=== PATIENT | male | born 1955 | race Caucasian/White ===

== ENCOUNTER 2017-06-22 10:22 | Inpatient (IN) | payer OTHER ==
[~2017-06-22] VITALS: Ht 157.5 cm; Wt 83.0 kg
--- NOTE | 2017-06-22 10:44 | ED CARDIAC/CP/PALPITATIONS ---
History of Present Illness General Chief Complaint: Chest Pain Stated Complaint: CP Source: patient, family Exam Limitations: language barrier (SON INTERPRETING) Vital Signs & Intake/Output Vital Signs & Intake/Output Vital Signs Date Time Temp Pulse Resp B/P B/P Pulse O2 O2 Flow FiO2 Mean Ox Delivery Rate 06/22 1152 94 20 125/65 94 Room Air 06/22 1136 123 152/85 06/22 1110 98 Room Air 06/22 1104 98.6 130 18 153/92 06/22 1040 98.6 130 18 153/92 97 Room Air Allergies Coded Allergies: No Known Drug Allergies (UNKNOWN 06/22/17) Triage Nurses Notes Reviewed? yes Onset: Gradual Duration: worse persistent since (THIS AM 7 AM) Timing: no prior history Quality/Severity: moderate Location: central Radiation: no radiation Activities at Onset: none Prior Chest Pain/Card Workup: stress test (3 YEARS AGO- ) Modifying Factors: Improves With: rest. Associated Symptoms: LIGHTHEADED, CP,SOB HPI: Patient is a 62-year-old male presenting to emergency department with chief complaint centralized chest pain, shortness of breath and lightheadedness that began spotting around 7 AM. Patient had a difficult time falling asleep so he took his blood pressure and noticed it was elevated so he called his son who then brought him in for evaluation. Patient also reports intermittent palpitations. No history of irregular heart rate. Chest pain is currently moderate and nonradiating. Denies any nausea or vomiting. No arm pain and jaw pain or neck pain. Denies any back pain. (Nathaly Lopez) Past History Travel History Traveled to [place] past 21 day No Medical History Any Pertinent Medical History? see below for history Surgical History Surgical History: non-contributory Psychosocial History What is your primary language Yi Family History Hx Contributory? No (Nathaly Lopez) Review of Systems Review of Systems Constitutional: Reports: malaise. Comments Review of systems: See HPI, All other systems negative. Constitutional, no chills fever or weight loss HEENT: No visual changes no sore throat no congestion Cardiovascular: No orthopnea or ankle swelling Skin, no jaundice no rashes Respiratory: No cough sputum or hemoptysis GI: No nausea no vomiting : No dysuria No hematuria Muscle skeletal: no back pain, no neck pain, Neurologic: No numbness no confusion NO HEADACHES Psych: No stress anxiety or depression,. Heme/endocrine: No bruising no bleeding no polyuria or polydipsia Immunology: No splenectomy or history of AIDS (Nathaly Lopez) Physical Exam Physical Exam General Appearance: well developed/nourished, no apparent distress, alert, awake , comfortable Cardiovascular: IRREGULAR RATE AND RHYTHM Comments: Well-developed well-nourished person in no acute distress HEENT: Pupils equally round and reactive to light and accommodation. Nose is atraumatic. Neck: Supple, no lymphadenopathy, normal range of motion without pain or tenderness Back: Nontender, no CVA tenderness. Cardiovascular: IRRegular rate and rhythms no murmurs rubs or gallops, normal JVP Respiratory: Chest nontender. No respiratory distress.breath sounds clear to auscultation bilaterally Abdomen: Soft, nontender nondistended, no appreciable organomegaly. Normal bowel sounds. No ascites, no rebound or guarding. Extremity: No edema, no calf tenderness to palpation, normal and equal pulses. Neuro: Alert oriented x3, motor sensory normal, cranial nerves II through XII grossly intact. Skin: No appreciable rash on exposed skin, skin is warm and dry. Psych: Mood and affect is normal, memory and judgment is normal. Core Measures ACS in differential dx? Yes CVA/TIA Diagnosis No Sepsis Present: No Sepsis Focused Exam Completed? No (Nathaly Lopez) Progress Differential Diagnosis: ACS, PE, NEW ON SET RAPID AFIB, ELECTROLYTE ABNORMALITY, DEHYDRATION Plan of Care: Orders Procedure Date/time Status Regular Diet 06/22 L Active PARTIAL THROMBOPLASTIN TIME 06/22 1840 Active Patient Data 06/22 1222 Active Patient Data 06/22 1217 Active OXYGEN SETUP (GEN) 06/22 1149 Active Saline Lock 06/22 1149 Active Admit to inpatient 06/22 1149 Active Vital Signs 06/22 1149 Active Activity/Ambulation 06/22 1149 Active Code Status 06/22 1149 Active Telemetry/Environmental Health Safety Manager 06/22 1044 Active TSH REFLEX 06/22 1044 Complete TROPONIN LEVEL 06/22 1044 Complete PARTIAL THROMBOPLASTIN TIME 06/22 1044 Complete PROTHROMBIN TIME 06/22 1044 Complete COMPREHENSIVE METABOLIC PANEL 06/22 1044 Complete CBC WITHOUT DIFFERENTIAL 06/22 1044 Complete B-TYPE NATRIURETIC PEP (BNP) 06/22 1044 Complete EKG 06/22 1024 Active Current Medications Sig/Ryan Start time Last Medication Dose Stop Time Status Admin Heparin Sodium 25,000 UNIT Q24H 06/22 1200 AC 06/22 (Porcine) 06/23 1159 1240 (Heparin) Sodium Chloride 500 ML Laboratory Tests 06/22/17 1055: Anion Gap 16, Estimated GFR > 60, BUN/Creatinine Ratio 22.9, Glucose 99, Calcium 9.6, Total Bilirubin 0.2, AST 21, ALT 38, Alkaline Phosphatase 89, Troponin I < 0.01, Wpm-[id number]-Eacaprukkqq Pept 185 H, Total Protein 7.5, Albumin 4.6, Globulin 2.9, Albumin/Globulin Ratio 1.6, TSH &T3 &Free T4 Intrp 2.880, PT 10.8, INR 1.03 , APTT 30, CBC w Diff NO MAN DIFF REQ, RBC 4.46 L, MCV 82.7, MCH 27.4, RDW 14.5 , MPV 8.6, Gran % 65.1, Lymphocytes % 21.7, Monocytes % 10.9 H, Eosinophils % 1.9, Basophils % 0.4, Absolute Granulocytes 4.5, Absolute Lymphocytes 1.5, Absolute Monocytes 0.7 H, Absolute Eosinophils 0.1, Absolute Basophils 0, PUBS MCHC 33.2 Patient in rapid atrial fibrillation- CARDIZEM STARTED, WILL BE ADMITTED TO TELE - D/W DR CERVANTES and he would like to start patient on IV heparin. Patient heart rate hovering between 90 and 100 this time, may eventually need Cardizem drip, holding at this time. Patient does report that his chest pain improved as the heart rate came down. Diagnostic Imaging: Viewed by Me: Radiology Read. Discussed w/RAD: Radiology Read. Radiology Impression: PATIENT: DEMETRIUS JACK PRESENT AGE: 62 PATIENT ACCOUNT NO: [id number] : 53 LOCATION: [facility] ORDERING PHYSICIAN: Nathaly CHAUDHARY SERVICE DATE: 06/22/17 EXAM TYPE: RAD - XRY-PORTABLE CHEST XRAY EXAMINATION: XR PORTABLE CHEST CLINICAL INFORMATION: Chest pain rule out cardiomegaly. COMPARISON: There are no prior studies for comparison. TECHNIQUE: Portable frontal view of the chest was obtained. FINDINGS: No significant abnormality is noted involving the heart, lungs, mediastinum, bony thorax or soft tissues. The cardiac silhouette is not enlarged. IMPRESSION: Unremarkable examination. DICTATED BY: Seble Crook MD DATE/TIME DICTATED:06/22/171111 MANAGER EMPLOYEE BENEFITS:DENIA DATE/TIME TRANSCRIBED:06/22/171111 CONFIDENTIAL, DO NOT COPY WITHOUT APPROPRIATE AUTHORIZATION. <Electronically signed in Other Vendor System> SIGNED BY: Seble Crook MD 06/22/17 1116 Initial ED EKG: RAPID AFIB 161 BPM (Nathaly Lopez) Departure Departure Time of Disposition: 1152 Disposition: STILL A PATIENT Condition: Stable Clinical Impression Primary Impression: Rapid atrial fibrillation Referrals: Lisette CASINAO,Herb Yanes (PCP/Family) Departure Forms: Customer Survey General Discharge Information Admission Note Spoke With: Braeden Currie MD Documentation of Exam: Documentation of any treatments & extenuating circumstances including Concerns Regarding Discharge (functional status, medication knowledge or non-compliance, living conditions, etc.) that warrant an admission rather than observation: Patient requiring telemetry monitoring, IV heparin, IV Cardizem drip, cardiology consultation, serial EKGs and troponins, discharge at this time is medically harmful. (Nathaly Lopez) PA/INDIVIDUAL PENSION CONSULTANT Co-Sign Statement Statement: ED Attending supervision documentation- x I saw and evaluated the patient. I have also reviewed all the pertinent lab results and diagnostic results. I agree with the findings and the plan of care as documented in the PA's/INDIVIDUAL PENSION CONSULTANT's documentation. New onset rapid atrial fibrillation [] I have reviewed the ED Record and agree with the PA's/INDIVIDUAL PENSION CONSULTANT's documentation. [] Additions or exceptions (if any) to the PAs/INDIVIDUAL PENSION CONSULTANT's note and plan are summarized below: [] (Kapil May MD) Critical Care Note Critical Care Note Critical Care Time: 30-74 min (Nathaly Lopez)
[2017-06-22 11:05] LABS: ABSOLUTE BASOPHIL COUNT 0 /CUMM (0.0-0.2); ABSOLUTE EOSINOPHIL COUNT 0.1 /CUMM (0.0-0.7); ABSOLUTE GRANULOCYTE CT 4.5 /CUMM (1.4-6.5); ABSOLUTE LYMPH COUNT 1.5 /CUMM (1.2-3.4); ABSOLUTE MONOCYTE COUNT 0.7 /CUMM (0.10-0.60); BASOPHIL % 0.4 % (0.0-2.0); EOSINOPHIL % 1.9 % (0-5); GRANULOCYTE % 65.1 % (42.2-75.2); HEMATOCRIT 36.8 % (42-52); MEAN CORPUSCULAR HGB 27.4 PG (27.0-31.0); MEAN CORPUSCULAR HGB CONC 33.2 G/DL (33.0-37.0); MEAN CORPUSCULAR VOLUME 82.7 FL (80.0-94.0); MEAN PLATELET VOLUME 8.6 FL (7.4-10.4); PLATELET COUNT 233 /CUMM (130-400); RBC DISTRIBUTION WIDTH 14.5 % (11.5-14.5); RED BLOOD CELL CT 4.46 /CUMM (4.70-6.10); WHITE BLOOD CELL COUNT 6.9 /CUMM (4.8-10.8)
--- NOTE | 2017-06-22 11:16 | RADIOLOGY REPORT ---
EXAMINATION: XR PORTABLE CHEST CLINICAL INFORMATION: Chest pain rule out cardiomegaly. COMPARISON: There are no prior studies for comparison. TECHNIQUE: Portable frontal view of the chest was obtained. FINDINGS: No significant abnormality is noted involving the heart, lungs, mediastinum, bony thorax or soft tissues. The cardiac silhouette is not enlarged. IMPRESSION: Unremarkable examination.
[2017-06-22 11:23] LABS: PT 10.8 SEC (9.4-12.5); PTT 30 SEC (25-37)
--- NOTE | 2017-06-22 13:28 | History & Physical ---
Louis CASIANO,[facility] 06/22/17 1327: General Information and HPI MD Statement: I have seen and personally examined DEMETRIUS JACK and documented this H&P. The patient is a 62 year old M who presented with a patient stated chief complaint of syncope. Source of Information: patient, family Exam Limitations: no limitations History of Present Illness: This is a 62-year-old Uzbek speaking gentleman with the past medical history of hyperlipidemia, angina 3 years ago with subsequent stress and coronary angiogram ADL positive for plaque formation but not significant enough for stent placement , presents to [place] ED for evaluation of chest pain. Patient son was by bedside and helped in the translation during the history taking. Patient reports working at nights on a daily basis, and earlier today in the morning was turned to sleep started having retrosternal chest pain described it as somehow pressure-like rating it 3/10 in intensity. Denies any radiating features, diaphoresis, or shortness of breath. Associated symptoms include palpitation. Of note, patient states that his head similar kind of pain 3 years ago which was worked up at [place] with coronary angio but no stents needed, and was prescribed metoprolol XL 50 mg in addition to atorvastatin 40 mg. He denies any recent upper respiratory infection, cough, chest trauma, noncompliance and his cardiac meds, or use of illicit medication. Later, I had a conversation with patient's daughter who stated that patient does have this intermittent episodes of chest pain which are transient and has never followed up after his last stress test. During history taking patient reported that his chest pain has subsided. Allergies/Medications Allergies: Coded Allergies: No Known Drug Allergies (UNKNOWN 06/22/17) Home Med list Aspirin (Roque Chewable Aspirin) 81 MG TAB.CHEW HTN (Reported) Atorvastatin Calcium (Lipitor) 40 MG TABLET HIGH CHOLESTROL (Reported) Metoprolol Succinate 50 MG TAB.ER.24H HTN (Reported) Past History Travel History Traveled to [place] past 21 day No Medical History Neurological: NONE EENT: NONE Cardiovascular: hypertension, hyperlipidemia Respiratory: NONE Gastrointestinal: NONE Hepatic: NONE Renal: NONE Musculoskeletal: NONE Psychiatric: NONE Endocrine: NONE Blood Disorders: NONE Cancer(s): NONE CLIP ON SUNGLASSES INSPECTOR/Reproductive: NONE Surgical History Surgical History: non-contributory Review of Systems Review of Systems Constitutional: Reports: see HPI. EENTM: Reports: no symptoms. Cardiovascular: Reports: syncope. Respiratory: Reports: no symptoms. GI: Reports: no symptoms. Genitourinary: Reports: no symptoms. Musculoskeletal: Reports: no symptoms. Skin: Reports: no symptoms. Neurological/Psychological: Reports: no symptoms. Hematologic/Endocrine: Reports: no symptoms. Immunologic/Allergic: Reports: no symptoms. Exam & Diagnostic Data Last 24 Hrs of Vital Signs/I&O Vital Signs Date Time Temp Pulse Resp B/P B/P Pulse O2 O2 Flow FiO2 Mean Ox Delivery Rate 06/22 1716 98.0 77 18 118/74 97 Room Air 06/22 1600 96.2 72 18 147/76 96 Room Air 06/22 1353 71 113/80 97 Room Air 06/22 1152 94 20 125/65 94 Room Air 06/22 1136 123 152/85 06/22 1110 98 Room Air 06/22 1104 98.6 130 18 153/92 06/22 1040 98.6 130 18 153/92 97 Room Air Intake & Output 06/22 1600 06/22 0800 06/22 0000 Intake Total 0 Output Total Balance 0 Intake, Oral 0 Patient 83.007 kg Weight Weight Standing Scale Measurement Method Physical Exam General Appearance Alert, Oriented X3, Cooperative Skin No Significant Lesion Skin Temp/Moisture Exam: Cool/Dry Sepsis Skin Exam (color): Normal for Ethnicity HEENT Atraumatic, Mucous Membr. moist/pink, No JVD Neck Supple, No JVD, No thryomegaly Lymphatic Cervical nl Cardiovascular Normal S1, Normal S2, No Murmurs Lungs Clear to Auscultation, Normal Air Movement Abdomen Normal Bowel Sounds, Soft Neurological Normal Speech, Strength at 5/5 X4 Ext, Normal Tone, Sensation Intact, Cranial Nerves 3-12 NL, Reflexes 2+ Extremities No Tenderness/Swelling Vascular Normal Pulses, Pulses Symmetrical Last 24 Hrs of Labs/Han: Laboratory Tests 06/22/17 1606: Troponin I < 0.01 06/22/17 1055: Anion Gap 16, Estimated GFR > 60, BUN/Creatinine Ratio 22.9, Glucose 99, Calcium 9.6, Phosphorus 3.8, Magnesium 2.0, Total Bilirubin 0.2, AST 21, ALT 38, Alkaline Phosphatase 89, Troponin I < 0.01, Sjv-Q-Gmhlukaxljr Pept 185 H, Total Protein 7.5, Albumin 4.6, Globulin 2.9, Albumin/Globulin Ratio 1.6, Triglycerides 228 H, Cholesterol 156, LDL Cholesterol, Calc 56 L, HDL Cholesterol 55, Cholesterol/HDL Ratio 3, TSH &T3 &Free T4 Intrp 2.880, PT 10.8, INR 1.03, APTT 30, CBC w Diff NO MAN DIFF REQ, RBC 4.46 L, MCV 82.7, MCH 27.4, RDW 14.5, MPV 8.6, Gran % 65.1, Lymphocytes % 21.7, Monocytes % 10.9 H, Eosinophils % 1.9, Basophils % 0.4, Absolute Granulocytes 4.5, Absolute Lymphocytes 1.5, Absolute Monocytes 0.7 H, Absolute Eosinophils 0.1, Absolute Basophils 0, PUBS MCHC 33.2 Assessment/Plan Assessment: This is a 62-year-old gentleman with an intermittent history of isolated episodes of chest pain risk stratified 2010 with subsequent coronary angiogram showing occlusion but not significant enough for stenting, hyperlipidemia, htn, presents for evaluation of chest pain and palpitation and is found to be in new onset atrial fibrillation. TSH and electrolytes within normal limits. Impression * Chest pain. Retrosternal pain but with no typical anginal characteristic of radiation features, diaphoresis shortness of breath. Did not require any nitroglycerin or medication to subside. Initial troponins are negative, no ST elevation, however EKG does show ST depression in inferior lateral areas. Patient's history of hyperlipidemia puts him at risk for coronary atherosclerosis, last risk stratification was about 3 years ago. * Atrial fibrillation with RVR responding to cardizem 10 mg x2. * Hx of Hypertension Plan Admit to telemetry for close cardiac monitoring Nothing by mouth at midnight in anticipation of stress test Initial troponin negative will trend 2 more times with EKG Switched heparin to Lovenox with a 1.5 mg/kg daily dose for A. fib Will keep potassium above 4 and mag above 2 In the setting of heart rates in the range of 60s to 70s will hold off the metoprolol xl and consider Cardizem quick-acting if heart rate is above 110 persistently Echocardiogram in the morning As Ranked By This Provider Problem List: 1. Rapid atrial fibrillation Core Measures/Misc (02/14) Acute Coronary Syndrome ACS Diagnosis: No Congestive Heart Failure Congestive Heart Failure Diagnosis No Cerebrovascular Accident CVA/TIA Diagnosis: No VTE (View Protocol) VTE Risk Factors Acute Medical Illness No Mechanical VTE Prophylaxis d/t N/A MechProphylax Ordered No VTE Pharm Prophylaxis d/t NA PharmProphylax ordered Sepsis (View protocol) Sepsis Present: Elke Littlejohn MDYamila 06/22/171912: Attending MD Review Statement Attending Statement Attending MD Statement: examined this patient, discuss w/resident/PA/DIRECTOR OF SPORTS MEDICINE, agreed w/resident/PA/DIRECTOR OF SPORTS MEDICINE, discussed with family, reviewed EMR data (avail), discussed with nursing, reviewed images, amended to note Attending Assessment/Plan: Patient sen and examined. I have revviewed and agree with the H&P a documented by the resident above. Patient is currently resting comfortably and not in any distress. His HR has improved significantly following a total of 20mg of cardizem IV in the ER. Recommendations: -Admit to the telemetry service. -Hold off additional rate control meds for now given his rapid response. If persistently tachycardic over 110, begin a short acting regimen with Cardizem orally. -Follow up with the cardiology service regarding further ischemic work-up. Obtain records o previous work up. -Discontinue Heparin infusiona nd anticoagulate with full dose lovenox. Will discharge patient on a NOAC if no further ischemic work up is planned.
[2017-06-22 17:16] VITALS: BP 118/74
[2017-06-22] MEDS ORDERED: METOPROLOL SUCC50 M2 (17:50)
[2017-06-22] MEDS ORDERED: BAYER CHEWABLE81 MG (17:51)
[2017-06-22] MEDS ORDERED: LIPITOR40 M1 (17:52)
--- NOTE | 2017-06-22 19:13 | Admission Certification ---
Admission Certification Certification Statement - As attending physician, I certify that at the time of - admission, based on clinical presentation, severity of - symptoms, need for further diagnostic testing and - therapeutic interventions, and risk of adverse outcomes - without in-hospital treatment, in my clinical assessment, - this patient requires an acute hospital stay for a minimum - of two nights or longer. I have also considered psychsocial - factors such as support system, advanced age, financial - issues, cognitive issues, and failed out-patient treatments, - past re-admission history, safety of patient, and lack of - compliance as applicable. Specific rationale supporting this admission is: Patient is being admitted for mgt of New Onset Afib.
[2017-06-22 19:14] LABS: PTT 50 SEC (25-37)
[2017-06-22 22:00] VITALS: BP 128/78
[2017-06-23 06:00] VITALS: BP 148/88
--- NOTE | 2017-06-23 07:29 | PN- Housestaff ---
Flip Das 06/23/17 0729: Subjective Follow-up For: Chest pain Rapid A. fib Complaints: no complaints Tele-Events Since Last Visit: Sinus rhythm, sinus bradycardia 50-60 Subjective: Patient was seen and examined this morning. He is alert awake and oriented to time place and person. No acute events noticed overnight. Converted to sinus rhythm this morning. Rate under control. Denied any more chest pain, palpitations, short of breath, diaphoresis, nausea, vomiting, sweating Vitals remained stable he is nothing by mouth waiting for stress test this morning Review of Systems Constitutional: Reports: see HPI. Objective Last 24 Hrs of Vital Signs/I&O Vital Signs Date Time Temp Pulse Resp B/P B/P Pulse O2 O2 Flow FiO2 Mean Ox Delivery Rate 06/23 1446 97.7 68 19 118/82 94 06/23 0600 98.6 66 20 148/88 95 06/22 2200 98.8 69 16 128/78 95 Room Air 06/22 1716 98.0 77 18 118/74 97 Room Air 06/22 1600 96.2 72 18 147/76 96 Room Air Intake & Output 06/23 1600 06/23 0800 06/23 0000 Intake Total 10 120 Output Total Balance 10 120 Intake, IV 10 Intake, Oral 0 120 Patient 83.007 kg Weight Weight Reported by Patient Measurement Method Physical Exam General Appearance: Alert, Oriented X3, Cooperative, No Acute Distress Other Physical Findings: HEENT Atraumatic, Mucous Membr. moist/pink, No JVD Neck Supple, No JVD, No thryomegaly Lymphatic Cervical nl Cardiovascular Normal S1, Normal S2, No Murmurs Lungs Clear to Auscultation, Normal Air Movement Abdomen Normal Bowel Sounds, Soft Neurological Normal Speech, Strength at 5/5 X4 Ext, Normal Tone, Sensation Intact, Cranial Nerves 3-12 NL, Reflexes 2+ Extremities No Tenderness/Swelling Vascular Normal Pulses, Pulses Symmetrical Current Medications: Current Medications Sig/Ryan Start time Last Medication Dose Route Stop Time Status Admin Acetaminophen 0 .STK-MED ONE 06/22 1517 DC PO Acetaminophen 650 MG Q4P PRN 06/22 1515 AC 06/22 PO 1524 Atorvastatin Calcium 40 MG 1700 06/22 1700 AC 06/22 PO 1852 Dipyridamole 45 MG ONE 06/23 0000 NR Dextrose/Water 31 ML IV 06/23 2359 Enoxaparin Sodium 120 MG 1600 06/22 1600 AC 06/22 SC 1557 Heparin Sodium 25,000 UNIT Q24H 06/22 1200 DC 06/22 (Porcine) IV 06/23 1159 1240 Sodium Chloride 500 ML Hydromorphone HCl 0.6 MG ONCE ONE 06/23 1430 DC 06/23 IV 06/23 1431 1432 Oxycodone/ 1 TAB ONCE ONE 06/23 1345 DC 06/23 Acetaminophen PO 06/23 1346 1350 Potassium Chloride 40 MEQ ONCE ONE 06/22 1930 DC 06/22 PO 06/22 193 205 Tramadol HCl 50 MG Q6P PRN 06/22 1999 AC 06/23 PO 1256 Last 24 Hrs of Lab/Han Results Last 24 Hrs of Labs/Mics: Laboratory Tests 06/23/17 0650: Anion Gap 12, Estimated GFR > 60, BUN/Creatinine Ratio 21.4, Magnesium 2.0, CBC w Diff NO MAN DIFF REQ, RBC 4.38 L, MCV 83.4, MCH 27.1, RDW 14.4, MPV 9.1, Gran % 57.0, Lymphocytes % 29.8, Monocytes % 10.1 H, Eosinophils % 2.5, Basophils % 0.6, Absolute Granulocytes 3.1, Absolute Lymphocytes 1.6, Absolute Monocytes 0.6 , Absolute Eosinophils 0.1, Absolute Basophils 0, PUBS MCHC 32.5 L 06/22/17 2240: Troponin I < 0.01 06/22/17 1834: APTT 50 H 06/22/17 1606: Troponin I < 0.01 Assessment/Plan Assessment: This is a 62-year-old gentleman with an intermittent history of isolated episodes of chest pain risk stratified 2010 with subsequent coronary angiogram showing occlusion but not significant enough for stenting, hyperlipidemia, htn, presented for evaluation of chest pain and palpitation and was found to be in new onset atrial fibrillation. TSH and electrolytes within normal limits. Impression * Chest pain. Retrosternal pain but with no typical anginal characteristic of radiation features, diaphoresis shortness of breath. Did not require any nitroglycerin or medication to subside. Initial troponins are negative, no ST elevation, however EKG does show ST depression in inferior lateral areas. Patient's history of hyperlipidemia puts him at risk for coronary atherosclerosis, last risk stratification was about 3 years ago. * Atrial fibrillation with RVR responded to cardizem 10 mg x2- converted to sinus rhythm. * Hx of Hypertension/HLP Plan Admited to telemetry for close cardiac monitoring Continuous telemetry monitoring Monitor vitals closely every shift Serial troponin and EKG negative for [place] Started on Lovenox subcutaneous 120 mg daily for atrial fibrillation and stroke prophylaxis Will keep potassium above 4 and mag above 2 In the setting of heart rates in the range of 60s to 70s will hold off the metoprolol xl and consider Cardizem quick-acting if heart rate is above 110 persistently Echocardiogram pending Follow-up dipyridamole stress test results. Follow up cardiology recommendations DVT prophylaxis on Lovenox full code Pain pathway Heart healthy diet Problem List: 1. Rapid atrial fibrillation Pain Ratin Pain Location: n/a Pain Goal: Remain pain free Pain Plan: none Tomorrow's Labs & Rationales: none Eron CASIANO,Yamila 06/23/17 1510: Attending MD Review Statement Attending Statement Attending MD Statement: examined this patient, discuss w/resident/PA/METAL BONDING PRESS OPERATOR, agreed w/resident/PA/METAL BONDING PRESS OPERATOR, reviewed EMR data (avail), discussed with nursing, discussed with case mgmt, amended to note Attending Assessment/Plan: Patient seen and examined. Resting comfortably and not in any acute distress. Denies any chest pain or shortness of breath. Denies palpitations. Complains of mild headache. Overnight has converted back to normal sinus rhythm however is anicteric in the 50s. He is hemodynamically stable. He is currently scheduled to undergo the second portion of his nuclear stress test. On examination he is not in any distress. Heart sounds are regular with no audible normal. Lungs are clear bilaterally. Abdomen is soft and nontender. He has no peripheral edema. Recommendations: -Follow-up results of the nuclear stress test. -Awaiting input from the cardiology service regarding rate control versus antiarrhythmic therapy. -Continue anticoagulation with Lovenox for now. Follow-up echocardiogram results. Follow cardiology recommendations regarding any further interventions.
[2017-06-23 08:20] LABS: ABSOLUTE BASOPHIL COUNT 0 /CUMM (0.0-0.2); ABSOLUTE EOSINOPHIL COUNT 0.1 /CUMM (0.0-0.7); ABSOLUTE GRANULOCYTE CT 3.1 /CUMM (1.4-6.5); ABSOLUTE LYMPH COUNT 1.6 /CUMM (1.2-3.4); ABSOLUTE MONOCYTE COUNT 0.6 /CUMM (0.10-0.60); BASOPHIL % 0.6 % (0.0-2.0); EOSINOPHIL % 2.5 % (0-5); HEMATOCRIT 36.5 % (42-52); MEAN CORPUSCULAR HGB 27.1 PG (27.0-31.0); MEAN CORPUSCULAR HGB CONC 32.5 G/DL (33.0-37.0); MEAN CORPUSCULAR VOLUME 83.4 FL (80.0-94.0); MEAN PLATELET VOLUME 9.1 FL (7.4-10.4); PLATELET COUNT 213 /CUMM (130-400); RBC DISTRIBUTION WIDTH 14.4 % (11.5-14.5); RED BLOOD CELL CT 4.38 /CUMM (4.70-6.10); WHITE BLOOD CELL COUNT 5.5 /CUMM (4.8-10.8)
--- NOTE | 2017-06-23 14:18 | Discharge Summary ---
Visit Information Visit Dates Admission Date: 06/22/17 Discharge Date: 06/24/2017 Hospital Course Course Attending Physician: Danielle Francisco MD Primary Care Physician: Lisette CASIANO,Herb Yanes Consulting Request: Consulting Specialty: Cardiology Hospital Course: This is a 62-year-old Central African speaking gentleman with the past medical history of hyperlipidemia, angina 3 years ago with subsequent stress and coronary angiogram ADL positive for plaque formation but not significant enough for stent placement , presents to [place] ED for evaluation of chest pain. Vitals afebrile, heart rate 130, received 2 doses of IV Cardizem after which heart rate came down to 70, respiratory rate 20, blood pressure 140/88, saturating at 95 on room 8. Pertinent labs CBC, BEP normal. Electrolytes were normal. Troponin normal chest x-ray normal. LFTs were normal. Lipid profile was normal. chest pain and rapid afib This is a 62-year-old gentleman with an intermittent history of isolated episodes of chest pain risk stratified 2010 with subsequent coronary angiogram showing occlusion but not significant enough for stenting, hyperlipidemia, htn, presented for evaluation of chest pain and palpitation and was found to be in new onset atrial fibrillation. TSH and electrolytes within normal limits. Chest pain Retrosternal pain but with no typical anginal characteristic of radiation features, diaphoresis shortness of breath. Did not require any nitroglycerin or medication to subside. troponins are negative, no ST elevation, however EKG does show ST depression in inferior lateral areas. Patient's history of hyperlipidemia puts him at risk for coronary atherosclerosis, last risk stratification was about 3 years ago. He was placed on continuous telemetry monitoring. Serial sets of troponin and EKG was negative. Cardiology was consulted. Dipyridamole stress test was done which showed Normal Persantine stress and resting myocardial perfusion study with normal left ventricular wall motion and ejection fraction. echocardiogram was done which showed Normal left ventricular ejection fraction visually estimated at > 60%. Abnormal relaxation filling pattern of the left ventricle for age (stage 1 diastolic dysfunction). Atrial fibrillation with RVR Patient was found to have rapid A. fib, heart rate 130. He received 2 doses of IV Cardizem in the emergency room after which heart rate came down to 60. He converted to sinus rhythm after few hours. He continued to be in sinus rhythm, sinus bradycardia. Given his sinus bradycardia metoprolol and Cardizem were on hold. He was given subcutaneous Lovenox 120 mg daily for stroke prophylaxis. Chads class score was 1. He was discharged on 4 weeks of anticoagulation with eliqus 5 mg twice daily. Hypertension Patient is on metoprolol 50 mg daily at home. However metoprolol was stopped because of bradycardia. Patient was discharged on amlodipine 2.5 mg daily for hypertension. He was advised to follow-up with qa auditor for close monitoring DVT prophylaxis on Lovenox full code Pain pathway Heart healthy diet Allergies: Coded Allergies: No Known Drug Allergies (UNKNOWN 06/22/17) Pertinent Lab Results: cxr FINDINGS: No significant abnormality is noted involving the heart, lungs, mediastinum, bony thorax or soft tissues. The cardiac silhouette is not enlarged. IMPRESSION: Unremarkable examination. Disposition Summary Disposition Principal Diagnosis: Chest pain New-onset atrial fibrillation; paroxysmal Additional Diagnosis: Nonobstructive coronary artery disease. Discharge Disposition: home or self care Discharge Instructions General Discharge Information Code Status: Full Code Patient's Diet: Heart healthy diet Patient's Activity: As tolerated Follow-Up Instructions/Appts: Please follow-up with PCP in one week after discharge. Please follow-up with qa auditor in 1 week after discharge Medications at Discharge Discharge Medications: Stop taking the following medications: Metoprolol Succinate (Metoprolol Succinate) 50 MG TAB.ER.24H Continue taking these medications: Aspirin (Roque Chewable Aspirin) 81 MG TAB.CHEW Comments: Last Taken: NOT GIVEN IN HOSPITAL Time: Atorvastatin Calcium (Lipitor) 40 MG TABLET Comments: Last Taken: NOT GIVEN IN HOSPITAL Time: Start taking the following new medications: Apixaban (Eliquis) 5 MG TABLET 1 Tablet ORAL TWICE DAILY Qty = 60 No Refills Comments: Last Taken: NOT GIVEN IN HOSPITAL Time: Amlodipine (Norvasc) 2.5 MG TABLET 1 Tablet ORAL DAILY Qty = 30 No Refills Comments: Last Taken: NOT GIVEN IN HOSPITAL Time: Copies To: Lisette CASIANO,Herb Yanes Attending MD Review Statement Documenting Attending: Yamila Littlejohn MD Other Findings: Discharged in stable condition
[2017-06-23 14:46] VITALS: BP 118/82
--- NOTE | 2017-06-23 15:09 | Patient Discharge Instructions ---
Discharge Instructions General Discharge Information You were seen/treated for: Chest pain Rapid atrial fibrillation Special Instructions: Please follow-up with PCP in one week after discharge. Please follow-up with environmental air specialist in 1 week after discharge Diet Continue normal diet: Yes Recommended Diet: Heart Healthy Activity Full Activity/No Limits: Yes Acute Coronary Syndrome Inclusion Criteria At DC or during hospital stay patient has or had the following: ACS DIAGNOSIS No Discharge Core Measures Meds if any: Prescribed or Continued at Discharge Meds if any: NOT Prescribed or Continued at Discharge Congestive Heart Failure Inclusion Criteria At DC or during hospital stay patient has or had the following: CHF DIAGNOSIS No Discharge Core Measures Meds if any: Prescribed or Continued at Discharge Meds if any: NOT Prescribed or Continued at Discharge Cerebrovascular accident Inclusion Criteria At DC or during hospital stay patient has or had the following: CVA/TIA Diagnosis No Discharge Core Measures Meds if any: Prescribed or Continued at Discharge Meds if any: NOT Prescribed or Continued at Discharge Venous thromboembolism Inclusion Criteria VTE Diagnosis No VTE Type NONE VTE Confirmed by (Test) NONE Discharge Core Measures - Per Current guidelines, there needs to be overlap - treatment for the first 5 days of Warfarin therapy. - If discharged on Warfarin prior to 5 days of - overlap therapy, the patient will need to be - assessed for post discharge needs including - *Post discharge parental anticoagulation - *Warfarin and/or parental anticoagulation education - *Follow up date to check INR post discharge At least 5 days overlap therapy as Inpatient No Meds if any: Prescribed or Continued at Discharge Note: Overlap Therapy is Warfarin and Anticoagulant Meds if any: NOT Prescribed or Continued at Discharge
--- NOTE | 2017-06-23 16:00 | IV DIPYRIDAMOLE NUCLEAR STRESS ---
Clinical Diagnosis: Chest Pain and Atrial fibrillation with a rapid ventricular response Quality Measurement Specialist: Lisa Moya IV DIPYRIDAMOLE INFUSED: 45 mg IV AMINOPHYLLINE INFUSED: 0 mg PATIENT WEIGHT: 183 lbs INTERPRETATION: The patient's baseline EKG revealed at sinus rhythm and was within normal limits 62 BPM. Baseline B/P 140/80 mm Hg. The patient received 45 mg of dipyridamole infused intravenously over a 4 minute period. TC99M Myoview was injected after dipyridamole infusion. The patient complained of a transient "warm" feeling that resolved a few minutes after the dipyridamole infusion. Nondiagnostic ST segment depression following pharmacologic infusion. Arrhythmias: None IMPRESSION: The test was supervised by the interpreting Vice President Investor Relations, who was in attendance during the entire test. No EKG evidence of definite stress induced myocardial ischemia. See separately dictated Nuclear Report.
--- NOTE | 2017-06-23 16:09 | ECHOCARDIOGRAM REPORT ---
DEMETRIUS JACK Age: 62 : 1955 Gender: M Exam Date: 06/23/2017 10:18 Exam Location: [address] Ht (in): 62 Wt (lb): 183 BSA: 1.94 BP: 118 / 74 Ordering Physician: Ruben Myers MD Referring Physician: Ruben Myers MD Technologist: George Leigh [facility] Room Number: 177-1 Indications: AFIB/FLUTTER Rhythm: Sinus Technical Quality: Fair FINDINGS Left Ventricle Normal size left ventricle. Mild concentric left ventricular hypertrophy. No obvious regional wall motion abnormalities. Normal left ventricular ejection fraction visually estimated at >60%. Abnormal relaxation filling pattern of the left ventricle for age (stage 1 diastolic dysfunction). Mildly increased resting left ventricular outflow tract velocity (1.26 m/s). Right Ventricle Normal right ventricular size and function. Right Atrium Normal right atrial size. Left Atrium Normal left atrial size. Mitral Valve Mild mitral annular calcification. Structurally normal mitral valve. Trace mitral regurgitation. Aortic Valve Trileaflet aortic valve. Mild aortic sclerosis. No aortic valve stenosis or regurgitation. Tricuspid Valve Structurally normal tricuspid valve. Trace tricuspid regurgitation. No evidence of pulmonary hypertension. Right ventricular systolic pressure estimated to be within the normal range at 30 mmHg. Pulmonic Valve Pulmonic valve not well visualized. Trace pulmonic regurgitation. Pericardium No pericardial effusion. Great Vessels Normal size aortic root. Normal size inferior vena cava. CONCLUSIONS Normal size left ventricle. Mild concentric left ventricular hypertrophy. Normal left ventricular ejection fraction visually estimated at > 60%. Abnormal relaxation filling pattern of the left ventricle for age (stage 1 diastolic dysfunction). Mildly increased resting left ventricular outflow tract velocity (1.26 m/s). Normal right ventricular size and function. Normal atrial size. Trace mitral regurgitation. Trace tricuspid regurgitation. No evidence of pulmonary hypertension. Trace pulmonic regurgitation. Tono Culp M.D. (Electronically Signed) Final Date: 23 June 2017 16:09 MEASUREMENTS (Male / Female) Normal Values 2D ECHO LV Diastolic Diameter PLAX 3.9 cm 4.2 - 5.9 / 3.9 - 5.3 cm LV Systolic Diameter PLAX 2.5 cm 2.1 - 4.0 cm LV Fractional Shortening PLAX 35.9 % 25 - 46 % LV Ejection Fraction 2D Teich 66.1 % IVS Diastolic Thickness 1.2 cm LVPW Diastolic Thickness 1.1 cm LV Relative Wall Thickness 0.6 RV Internal Dim ED PLAX 3.5 cm 1.9 - 3.8 cm LVOT Diameter 1.8 cm Aortic Root Diameter 3.0 cm LA Systolic Diameter LX 3.5 cm 3.0 - 4.0 / 2.7 - 3.8 cm LA Volume 46.0 cm 18 - 58 / 22 - 52 cm Ascending Aorta Diameter 3.0 cm DOPPLER AV Peak Velocity 142.0 cm/s AV Peak Gradient 8.1 mmHg AV Mean Velocity 83.9 cm/s AV Mean Gradient 3.0 mmHg AV Velocity Time Integral 32.1 cm LVOT Peak Velocity 126.0 cm/s LVOT Peak Gradient 6.4 mmHg LVOT Mean Velocity 65.9 cm/s LVOT Mean Gradient 2.0 mmHg LVOT Velocity Time Integral 27.3 cm LVOT Stroke Volume 69.5 cm AV Area Cont Eq vti 2.2 cm AV Area Cont Eq pk 2.3 cm MV Peak Velocity 97.9 cm/s MV Peak Gradient 3.8 mmHg MV Mean Velocity 45.7 cm/s MV Mean Gradient 1.0 mmHg Mitral E Point Velocity 58.7 cm/s Mitral A Point Velocity 76.0 cm/s Mitral E to A Ratio 0.8 MV PHT Velocity 92.3 cm/s MV Deceleration [place] 591.0 cm/s MV Pressure Half Time 46.9 ms MV Area PHT 4.7 cm MV Deceleration Time 282.0 ms TR Peak Velocity 248.0 cm/s TR Peak Gradient 24.6 mmHg Right Atrial Pressure 5.0 mmHg Pulmonary Artery Systolic Pressu 29.6 mmHg Right Ventricular Systolic Press 29.6 mmHg PV Peak Velocity 102.0 cm/s PV Peak Gradient 4.2 mmHg PV Mean Velocity 63.3 cm/s PV Mean Gradient 2.0 mmHg PV Velocity Time Integral 24.2 cm LV E' Lateral Velocity 9.0 cm/s Mitral E to LV E' Lateral Ratio 6.5 LV E' Septal Velocity 6.8 cm/s Mitral E to LV E' Septal Ratio 8.6
--- NOTE | 2017-06-23 17:27 | Cons- Cardiology ---
General Information and HPI Consulting Request Date of Consult: 06/23/17 Requested By: Danielle Francisco MD Reason for Consult: Chest discomfort. Source of Information: patient, family, old records Exam Limitations: language barrier History of Present Illness: Mr. Mariam Barfield is a 62-year-old Samoan speaking male with a history of long-standing tobacco use, hypertension, dyslipidemia and previous chest discomfort for which he underwent cardiac catheterization ~2014 at [facility] that revealed nonobstructive coronary artery disease with the recommendation for medical management who presented to the ED after experiencing chest discomfort following working a typical third shift at his place of employment. The discomfort was described as "pressure-like", nonradiating, and of mild ("3/ 10") intensity with some associated palpitations, but without any associated shortness of breath, nausea, diaphoresis, etc. and lasted 1-2 hours in duration before resolving. He denies any recent unusual exertion, chest trauma, upper respiratory symptoms with or without cough, issues with compliance, etc., but on reviewing the record it sounds as though he has intermittent similar episodes of chest discomfort and is never followed up for these complaints after his cardiac catheterization. Allergies/Medications Allergies: Coded Allergies: No Known Drug Allergies (UNKNOWN 06/22/17) Home Med List: Aspirin (Roque Chewable Aspirin) 81 MG TAB.CHEW HTN (Reported) Atorvastatin Calcium (Lipitor) 40 MG TABLET HIGH CHOLESTROL (Reported) Metoprolol Succinate 50 MG TAB.ER.24H HTN (Reported) Review of Systems Review of Systems: A 14 point system review was obtained and was noncontributory, other than as above. Past History Travel History Traveled to [place] past 21 day No Medical History Blood Transfusion Hx: No Neurological: NONE EENT: NONE Cardiovascular: hypertension, hyperlipidemia Respiratory: NONE Gastrointestinal: NONE Hepatic: NONE Renal: NONE Musculoskeletal: NONE Psychiatric: NONE Endocrine: NONE Blood Disorders: NONE Cancer(s): NONE ACQUISITION PROFESSIONAL/Reproductive: NONE Surgical History Surgical History: non-contributory Psychosocial History Where Do You Live? Home Smoking Status: Former Smoker Exam & Diagnostic Data Vital Signs and I&O Vital Signs Date Time Temp Pulse Resp B/P B/P Pulse O2 O2 Flow FiO2 Mean Ox Delivery Rate 06/23 1446 97.7 68 19 118/82 94 06/23 0600 98.6 66 20 148/88 95 06/22 2200 98.8 69 16 128/78 95 Room Air 06/22 1716 98.0 77 18 118/74 97 Room Air Intake & Output 06/23 1600 06/23 0800 06/23 0000 06/22 1600 06/22 0806/22 0000 Intake Total 480 10 120 0 Output Total 350 Balance 130 10 120 0 Intake, IV 10 Intake, Oral 480 0 120 0 Output, Urine 350 Patient 183 lb 183 lb Weight Weight Reported by Patient Standing Scale Measurement Method Physical Exam: Well-developed, well-nourished middle-aged male in no acute distress. Vital signs: See above. HEENT: Normocephalic, atraumatic, EOMI, moist mucous membranes. Neck: No JVD, no bruits. Lungs: Clear to auscultation bilaterally. Heart: S1, S2 with no murmur, gallop, or rub appreciated. PMI fifth ICS at MCL. Abdomen: Soft, nontender, positive bowel sounds. Extremities: No edema. Labs/Han Results: Laboratory Tests 06/23 06/22 06/22 06/22 0650 2240 1834 1606 Chemistry Sodium (137 - 145 mmol/L) 143 Potassium (3.5 - 5.1 mmol/L) 4.7 Chloride (98 - 107 mmol/L) 104 Carbon Dioxide (22 - 30 mmol/L) 27 Anion Gap (5 - 16) 12 BUN (9 - 20 mg/dL) 15 Creatinine (0.7 - 1.2 mg/dL) 0.7 Estimated GFR (>60 ml/min) > 60 BUN/Creatinine Ratio (7 - 25 %) 21.4 Magnesium (1.6 - 2.3 mg/dL) 2.0 Troponin I (<0.11 ng/ml) < 0.01 < 0.01 Coagulation APTT (25 - 37 SEC) 50 H Hematology CBC w Diff NO MAN DIFF REQ WBC (4.8 - 10.8 /CUMM) 5.5 RBC (4.70 - 6.10 /CUMM) 4.38 L Hgb (14.0 - 18.0 G/DL) 11.9 L Hct (42 - 52 %) 36.5 L MCV (80.0 - 94.0 FL) 83.4 MCH (27.0 - 31.0 PG) 27.1 RDW (11.5 - 14.5 %) 14.4 Plt Count (130 - 400 /CUMM) 213 MPV (7.4 - 10.4 FL) 9.1 Gran % (42.2 - 75.2 %) 57.0 Lymphocytes % (20.5 - 51.1 %) 29.8 Monocytes % (1.7 - 9.3 %) 10.1 H Eosinophils % (0 - 5 %) 2.5 Basophils % (0.0 - 2.0 %) 0.6 Absolute Granulocytes (1.4 - 6.5 /CUMM) 3.1 Absolute Lymphocytes (1.2 - 3.4 /CUMM) 1.6 Absolute Monocytes (0.10 - 0.60 /CUMM) 0.6 Absolute Eosinophils (0.0 - 0.7 /CUMM) 0.1 Absolute Basophils (0.0 - 0.2 /CUMM) 0 PUBS MCHC (33.0 - 37.0 G/DL) 32.5 L 06/22 1055 Chemistry Sodium (137 - 145 mmol/L) 146 H Potassium (3.5 - 5.1 mmol/L) 3.7 Chloride (98 - 107 mmol/L) 103 Carbon Dioxide (22 - 30 mmol/L) 26 Anion Gap (5 - 16) 16 BUN (9 - 20 mg/dL) 16 Creatinine (0.7 - 1.2 mg/dL) 0.7 Estimated GFR (>60 ml/min) > 60 BUN/Creatinine Ratio (7 - 25 %) 22.9 Glucose (65 - 99 mg/dL) 99 Calcium (8.4 - 10.2 mg/dL) 9.6 Phosphorus (2.5 - 4.5 mg/dL) 3.8 Magnesium (1.6 - 2.3 mg/dL) 2.0 Total Bilirubin (0.2 - 1.3 mg/dL) 0.2 AST (17 - 59 U/L) 21 ALT (21 - 72 U/L) 38 Alkaline Phosphatase (< 127 U/L) 89 Troponin I (<0.11 ng/ml) < 0.01 Ddh-H-Olvlujobqys Pept (<125 pg/mL) 185 H Total Protein (6.3 - 8.2 g/dL) 7.5 Albumin (3.5 - 5.0 g/dL) 4.6 Globulin (1.9 - 4.2 gm/dL) 2.9 Albumin/Globulin Ratio (1.1 - 2.2 %) 1.6 Triglycerides (<150 mg/dL) 228 H Cholesterol (< 200 MG/DL) 156 LDL Cholesterol, Calc (65 - 129 mg/dL) 56 L HDL Cholesterol (40 - 60 mg/dL) 55 Cholesterol/HDL Ratio (0.00 - 4.88 %) 3 TSH &T3 &Free T4 Intrp (0.27 - 4.20 uIU/mL) 2.880 Coagulation PT (9.4 - 12.5 SEC) 10.8 INR (0.90 - 1.17) 1.03 APTT (25 - 37 SEC) 30 Hematology CBC w Diff NO MAN DIFF REQ WBC (4.8 - 10.8 /CUMM) 6.9 RBC (4.70 - 6.10 /CUMM) 4.46 L Hgb (14.0 - 18.0 G/DL) 12.2 L Hct (42 - 52 %) 36.8 L MCV (80.0 - 94.0 FL) 82.7 MCH (27.0 - 31.0 PG) 27.4 RDW (11.5 - 14.5 %) 14.5 Plt Count (130 - 400 /CUMM) 233 MPV (7.4 - 10.4 FL) 8.6 Gran % (42.2 - 75.2 %) 65.1 Lymphocytes % (20.5 - 51.1 %) 21.7 Monocytes % (1.7 - 9.3 %) 10.9 H Eosinophils % (0 - 5 %) 1.9 Basophils % (0.0 - 2.0 %) 0.4 Absolute Granulocytes (1.4 - 6.5 /CUMM) 4.5 Absolute Lymphocytes (1.2 - 3.4 /CUMM) 1.5 Absolute Monocytes (0.10 - 0.60 /CUMM) 0.7 H Absolute Eosinophils (0.0 - 0.7 /CUMM) 0.1 Absolute Basophils (0.0 - 0.2 /CUMM) 0 PUBS MCHC (33.0 - 37.0 G/DL) 33.2 Diagnostic Data EKG Results EKG 06/22/2017 at 10:32 AM: Atrial fibrillation with a rapid ventricular response and diffuse ST segment depression, cannot exclude ischemia. Note faster rate, rhythm change, and diffuse ST segment depression when compared to previous tracing from 07/29/2005. EKG 06/22/2017 at 4:34 PM: Normal sinus rhythm and minor right precordial T-wave abnormalities. Rhythm and ST depression improved his previous tracing from earlier. CXR Results CXR 06/22/2017: No acute cardiopulmonary process. Assessment/Plan Assessment/Plan Chest discomfort with suspicious features in this middle-aged male with multiple risk factors for coronary artery disease and previously documented nonobstructive coronary artery disease who presented with the "new onset" of atrial fibrillation with a rapid ventricular response and marked diffuse ST segment depression with resolution of his symptoms and electrocardiogram changes following spontaneous conversion back to sinus rhythm. Fortunately, despite the 1-2 hour duration of the episode of chest discomfort there has been no evidence of evolutionary electrocardiographic changes or evidence of myocardial necrosis by the serial troponin I determinations that of come back thus far It's also possible that the atrial fibrillation with rapid ventricular response was enough to lead to symptoms from ischemia in this gentleman with mild coronary disease. Unfortunately, while he may have gone into atrial fibrillation and this prompted the chest discomfort, it is also possible that he was in the atrial fibrillation for a longer period of time with a longer duration ultimately leading to symptoms. He has a [id number] Score of 1 (HTN), but should be screened for diabetes mellitus with a glycosylated hemoglobin A1c. Recommendations: * Admit telemetry, follow-up troponins, follow-up electrocardiograms. * Echocardiogram to assess for left ventricular wall motion abnormalities and overall left ventricular systolic/diastolic function, atrial size, etc. * If no evidence of myocardial necrosis and no further chest discomfort, consider nuclear treadmill stress test to help exclude an ischemic basis for his presentation. * Check glycosylated hemoglobin A1c. * Would favor maintaining him on an NOAC for at least the short-term i.e. minimum of 4 weeks, even if his hemoglobin A1c is normal to be sure he does not have any further atrial fibrillation. * Would also obtain records from [facility] regarding his cardiac catheterization if possible. * Continue on his present cardiac regimen of antiplatelet, beta lanette, statin therapy, etc. * DVT prophylaxis. Further recommendations will follow, Thank you. Consult Acknowledgment - Thank you for your consult request.
--- NOTE | 2017-06-23 18:24 | NUCLEAR MEDICINE REPORT ---
PERSANTINE STRESS AND RESTING SPECT MYOCARDIAL PERFUSION IMAGING STUDY WITH GATED SPECT IMAGES: CLINICAL INDICATION: Chest pain. PROCEDURE: Regional myocardial perfusion was assessed using a 1 day protocol. Stress images were obtained on 06/23/2017 following the intravenous administration of 20.9 mCi Tc 99m Myoview. Stress consisted of 45 mg Persantine given intravenously. Following the sestamibi injection, no aminophylline was given intravenously. Rest images were obtained 06/23/2017 following the intravenous administration of 33.0 mCi Technetium 99m Myoview. Single photon emission tomographic (SPECT) images were obtained. SPECT images were acquired in a 64 x 64 matrix of 64 projections over 180 degrees. These were reconstructed into standard short axis, horizontal and vertical long axis cardiac projections. FINDINGS: The post stress images demonstrate the left ventricular chamber to be normal in size. There is homogeneous distribution of activity in the left ventricular myocardium with no regions of abnormally decreased activity noted. The resting images also demonstrate homogeneous distribution of activity in the left ventricular myocardium, and are not significantly changed from the post stress images. The images were obtained using a gated SPECT technique, which permits visualization of wall motion and calculation of the left ventricular ejection fraction. No left ventricular wall motion abnormalities are noted on either the stress or resting study. The calculated left ventricular ejection fraction is 66% on the stress study. No previous studies available for comparison. IMPRESSION: Normal Persantine stress and resting myocardial perfusion study with normal left ventricular wall motion and ejection fraction.
[2017-06-24 06:00] VITALS: BP 142/82
--- NOTE | 2017-06-24 07:43 | PN- Housestaff ---
See Addendum Subjective Follow-up For: Chest pain Rapid A. fib Complaints: no complaints Tele-Events Since Last Visit: Sinus rhythm, sinus bradycardia 50-60 Subjective: Patient was seen and examined this morning. He is alert awake and oriented to time place and person. No acute events noticed overnight. Converted to sinus rhythm AND Rate under control. Denied any more chest pain, palpitations, short of breath, diaphoresis, nausea, vomiting, sweating Vitals remained stable stress test normal Review of Systems Constitutional: Reports: see HPI. Objective Last 24 Hrs of Vital Signs/I&O Vital Signs Date Time Temp Pulse Resp B/P B/P Pulse O2 O2 Flow FiO2 Mean Ox Delivery Rate 06/24 0600 98.2 69 20 142/82 95 06/23 1446 97.7 68 19 118/82 94 Intake & Output 06/24 1600 06/24 0800 06/24 0000 Intake Total 400 470 Output Total Balance 400 470 Intake, IV 20 Intake, Oral 400 450 Number 0 Bowel Movements Physical Exam General Appearance: Alert, Oriented X3, Cooperative, No Acute Distress Other Physical Findings: HEENT Atraumatic, Mucous Membr. moist/pink, No JVD Neck Supple, No JVD, No thryomegaly Lymphatic Cervical nl Cardiovascular Normal S1, Normal S2, No Murmurs Lungs Clear to Auscultation, Normal Air Movement Abdomen Normal Bowel Sounds, Soft Neurological Normal Speech, Strength at 5/5 X4 Ext, Normal Tone, Sensation Intact, Cranial Nerves 3-12 NL, Reflexes 2+ Extremities No Tenderness/Swelling Vascular Normal Pulses, Pulses Symmetrical Current Medications: Current Medications Sig/Ryan Start time Last Medication Dose Route Stop Time Status Admin Acetaminophen 650 MG Q4P PRN 06/22 1515 AC 06/22 PO 1524 Atorvastatin Calcium 40 MG 1700 06/22 1700 AC 06/23 PO 1650 Dipyridamole 45 MG ONE 06/23 0000 DC Dextrose/Water 31 ML IV 06/23 2359 Enoxaparin Sodium 120 MG 1600 06/22 1600 06/23 SC 1651 Hydromorphone HCl 0.6 MG ONCE ONE 06/23 1430 DC 06/23 IV 06/23 1431 1432 Oxycodone/ 1 TAB ONCE ONE 06/23 1345 DC 06/23 Acetaminophen PO 06/23 1346 1350 Tramadol HCl 50 MG Q6P PRN 06/22 1999 06/23 PO 1256 Assessment/Plan Assessment: This is a 62-year-old gentleman with an intermittent history of isolated episodes of chest pain risk stratified 2010 with subsequent coronary angiogram showing occlusion but not significant enough for stenting, hyperlipidemia, htn, presented for evaluation of chest pain and palpitation and was found to be in new onset atrial fibrillation. TSH and electrolytes within normal limits. Impression * Chest pain. Retrosternal pain but with no typical anginal characteristic of radiation features, diaphoresis shortness of breath. Did not require any nitroglycerin or medication to subside. Initial troponins are negative, no ST elevation, however EKG does show ST depression in inferior lateral areas. Patient's history of hyperlipidemia puts him at risk for coronary atherosclerosis, last risk stratification was about 3 years ago. * Atrial fibrillation with RVR responded to cardizem 10 mg x2- converted to sinus rhythm. * Hx of Hypertension/HLP Plan * Admited to telemetry for close cardiac monitoring * Continuous telemetry monitoring * Monitor vitals closely every shift * Serial troponin and EKG negative for ND * on Lovenox subcutaneous 120 mg daily for atrial fibrillation and stroke prophylaxis * Will keep potassium above 4 and mag above 2 * In the setting of heart rates in the range of 60s to 70s will hold off the metoprolol xl and consider Cardizem quick-acting if heart rate is above 110 persistently * Echocardiogram - stage1 diastolic dysfunction. EF 65% * Dipyridamole stress test - Normal Persantine stress and resting myocardial perfusion study with normal left ventricular wall motion and ejection fraction. * Follow up cardiology recommendations * continue aspirin * continue statin * He has a [id number] Score of 1 (HTN) * Would give NOAC for at least the short-term i.e. minimum of 4 weeks- ELIQUS 5MG BD. Hypertension Metoprolol was stopped because of bradycardia. Will discharge on amlodipine 2.5 daily for blood pressure control DVT prophylaxis on Lovenox full code Pain pathway Heart healthy diet Problem List: 1. Rapid atrial fibrillation Pain Ratin Pain Location: n/a Pain Goal: Remain pain free Pain Plan: none Tomorrow's Labs & Rationales: none Consulting Request: Consulting Specialty: Cardiology
[2017-06-24] MEDS ORDERED: ELIQUIS5 M1 PO (08:38)
[2017-06-24] MEDS ORDERED: NORVASC2.5 M1 PO (10:25)
== END 2017-06-24 12:45 | DRG 310 ==
LOC: ERH 10:22 → 1NO 11:49 → ERHI 11:49 → 1NO 11:49 → ENRESERV 15:25 → ENTRNSPT 16:41 → 1NO 16:56 → EDTRNSPT 17:02 → CMPTRNSPT 17:26 → ENPENDDIS 06-24 10:32 → 1NO 06-24 12:26
PROVIDERS: Physician Assistant; Student in an Organized Health Care Education/Training Program
DX: I48.0 Paroxysmal atrial fibrillation (principal); E78.5 Hyperlipidemia, unspecified; I10 Essential (primary) hypertension; I25.10 Atherosclerotic heart disease of native coronary artery without angina pectoris; R00.1 Bradycardia, unspecified; Z87.891 Personal history of nicotine dependence
CPT/HCPCS: 1NP; 36415; 71045; 78452; 82436; 93005; 93010; 93016; 93017; 93306; 96365; 96366; 96375; 99291; A9502; J1245; J1644; J1650